=== PATIENT | female | born 1990 | race Caucasian/White ===

== ENCOUNTER → 2018-02-22 | Outpatient (CLI) | payer MEDICAID | LOC: FIMAGING 09:28 | PROVIDERS: ATTEND Advanced Practice Midwife | DX: R10.2 Pelvic and perineal pain (principal); N92.0 Excessive and frequent menstruation with regular cycle; N94.10 Unspecified dyspareunia; N83.01 Follicular cyst of right ovary ==

== ENCOUNTER → 2018-07-12 | Outpatient (CLI) | payer MEDICAID | LOC: FIMAGING 07:26 | PROVIDERS: ATTEND Family Medicine | DX: R10.33 Periumbilical pain (principal) ==